=== PATIENT | female | born 1950 | race Caucasian/White ===

== ENCOUNTER 2018-09-28 08:41 | Day surgery (SDC) | payer OTHER ==
[2018-09-28] VITALS (14 sets, daily range): BP systolic 116–136; BP diastolic 58–85; PULSE 60–83; RESP 11–25; Ht 157.5 cm; Wt 70.7 kg
[~2018-09-28] VITALS: Ht 157.5 cm; Wt 70.7 kg
[~2018-09-28 08:41] MED LIST: CEFAZOLIN 1 GM INJ ONE; CEFAZOLIN 2 GM/50 ML (PMX) 50 ML IVPB ONE; DESFLURANE 15 MIN ONE; LIDOCAINE 2% (SDV) 5 ML INJ ONE; SOD CHLORIDE 0.9% 1,000 ML IV SCH
[2018-09-28] MEDS ORDERED: LEVO75TA65 PO (10:01)
[2018-09-28] MEDS ORDERED: ATOR20TA38 PO (10:02)
[2018-09-28] MEDS ORDERED: ALEN70TA5 PO (10:03)
[2018-09-28] MEDS ORDERED: LIDOCAINE 1% (MPF) 30 ML INJ ONE (12:45)
--- NOTE | 2018-09-28 12:46 | PREAC ---
Date/Time of Note Date/Time of Note DATE: 09/28/18 TIME: 12:44 Anesthesia Eval and Record Evaluation Time Pre-Procedure Interview DATE: 09/28/18 TIME: 12:44 Age 67 Sex female NPO: 8 hrs Preoperative diagnosis L breast mass Planned procedure L breast needle loc biopsy Past Medical History Past Medical History: Includes Cardio: Dyslipidemia Endo: Hypothyroid Musculoskeletal: Osteoarthritis Surgery & Anesthesia Issues No known issue Meds Anticoagulation: No Beta Kana within 24 hr: No Reason Beta Kana not given: Pt. not on B-Kana Reported Medications Alendronate Sodium* (Fosamax*) 70 Mg Tablet, 70 MG PO EVERY FRIDAY, #4 TAB 09/28/18 Atorvastatin Calcium* (Atorvastatin Calcium*) 20 Mg Tablet, 20 MG PO QHS, #30 TAB 09/28/18 Levothyroxine Sodium* (Levoxyl*) 75 Mcg Tablet, 75 MCG PO BEFORE BREAKFAST, #30 TAB 09/28/18 Current Medications Sodium Chloride 1,000 ml @ 75 mls/hr [id number] IV ; Start 09/28/18 at 07:00; St op 09/28/18 at 20:19 Meds reviewed: Yes Allergies Coded Allergies: No Known Drug Allergies (Unverified Allergy, Unknown, 09/28/18) Allergies Reviewed: Yes Labs/Studies Labs Reviewed: Reviewed by anesthesiologist test: Negative Studies: ECG Pre-procedure Exam Last vitals Vital Signs Date Temp Pulse Resp B/P (MAP) Pulse Ox O2 O2 Flow FiO2 Time Delivery Rate 09/28/18 97.3 83 18 125/85 99 Room Air 10:28 (98) Airway: Adequate mouth opening, Adequate thyromental dist Mallampati: Mallampati II Teeth: Normal Lung: Normal Heart: Normal ASA Physical Status ASA physical status: 3 Emergency: None Planned Anesthetic General/MAC: ETT Pre-operative Attestations Prior to commencing anesthesia and surgery, the patient was re-evaluated, there was verification of: *The patient's identity *The results of appropriate recent lab work and preoperative vital signs *The above evaluation not changing prior to induction *Anesthetic plan, risk benefits, alternative and complications discussed with patient/family; questions answered; patient/family understands, accepts and wishes to proceed. LUIS ALFREDO JEFFERS Sep 28, 2018 12:46
--- NOTE | 2018-09-28 12:49 | HPN ---
Date/Time of Note Date/Time of Note DATE: 09/28/18 TIME: 12:49 Interval H&P Admission Note Pt. seen H&P reviewed: No system changes GERALDO WILSON MD Sep 28, 2018 12:49
[2018-09-28] MEDS ORDERED: FENTAnyl 50 MCG/ML VIAL ONE (12:56)
[2018-09-28] MEDS ORDERED: HYDROmorphONE 1 MG/5 ML IV SYRINGE IV PRN ×3 (13:00)
[2018-09-28] MEDS ORDERED: METOCLOPRAMIDE 10 MG INJ IV PRN (13:00)
[2018-09-28] MEDS ORDERED: MEPERIDINE 25 MG INJ IV PRN (13:00)
[2018-09-28] MEDS ORDERED: ALBUTEROL 0.083% (NEB) 2.5 MG/3 ML AMP HHN PRN (13:00)
[2018-09-28] MEDS ORDERED: DIPHENHYDRAMINE 50 MG INJ IV PRN (13:00)
[2018-09-28] MEDS ORDERED: ONDANSETRON 4 MG INJ IV PRN ×2 (13:00→14:30)
[2018-09-28] MEDS ORDERED: FENTAnyl 50 MCG/ML VIAL IV PRN ×2 (13:00)
[2018-09-28] MEDS ORDERED: BUPIVACAINE 0.5% (SDV) 30 ML INJ ONE (13:24)
[2018-09-28] MEDS ORDERED: PROPOFOL 20 ML ONE (14:09)
[2018-09-28] MEDS ORDERED: ROCURONIUM 50 MG INJ ONE (14:09)
[2018-09-28] MEDS ORDERED: SUCCINYLCHOLINE CHLORIDE 100 MG/5 ML SYG IV ONE (14:09)
[2018-09-28] MEDS ORDERED: GLYCOPYRROLATE 0.4 MG INJ ONE (14:09)
[2018-09-28] MEDS ORDERED: NEOSTIGMINE 3 MG/3 ML SYRINGE ONE (14:09)
--- NOTE | 2018-09-28 14:22 | OPR ---
Date/Time of Note Date/Time of Note DATE: 09/28/18 TIME: 14:16 Operative Report Procedure Date: Sep 28, 2018 Preoperative Diagnosis Left breast mass Postoperative Diagnosis Left breast mass Operation/Procedure Performed Partial mastectomy, excisional biopsy of left breast mass using wire needle localization Surgeon see signature line Applications Consultant None Anesthesia Type: general Anesthesiologist: LUIS ALFREDO JEFFERS Estimated Blood Loss: minimal Transfusion none Specimen Left breast mass Grafts/Implants none Complications none Pt Condition Post Procedure: stable Disposition: PACU Indications Patient is a 67-year-old [place] female who presented to the office after she was found to have a suspicious left breast mass on routine mammography. The patient had an ultrasound and Mammogram which showed suspicious lesion in the region 12:00 of the left breast in mid depth. Given the above findings the patient was initially offered stereotactic biopsy, however, she refused this and requested surgical excision instead. She was scheduled for elective left partial mastectomy with wire needle localization for complete excision and definitive pathological diagnosis. All risks and benefits of the procedure including, but not limited to: Wound infection, excessive bleeding, postoperative seroma/hematoma formation, possible need for subsequent surgeries, loss of nipple areolar sensation, etc. were explained to the patient in full detail. She fully understood and wished to proceed with the procedure. Informed consent was obtained. Procedure Description The patient was brought to the operating room and placed supine on the operating table. Bilateral sequential compression devices were placed on both lower extremities. A dose of broad-spectrum perioperative intravenous antibiotics was given. Patient had undergone preoperative wire needle localization. After the induction of smooth general anesthesia the patient's left breast and chest wall were prepped and draped in standard surgical fashion. After performance of the surgical timeout 0.5% Marcaine was injected around the area of the incision. An incision was then made using a 15 blade scalpel from approximately the 11:00 location to the 12:00 location of the left breast, 6-8 cm from the nipple. Incision was carried down through the skin and subcutaneous tissues to the level of breast tissue using sharp dissection and Bovie electrocautery. Flaps were then raised circumferentially. The wire needle was identified. Its external portion was cut. The wire was then delivered through the skin into the field. Circumferential core of tissue was then dissected around the wire down to the level of the deep posterior breast. The specimen was then transected at its base. Marking sutures were used to tito the superior and lateral aspects. Specimen was then passed off the field. Intraoperative mammography showed the specimen to contain the wire needle and the mass in its entirety. At this point hemostasis was inspected for and noted to be total. The wound cavity was irrigated and the irrigant returned clear. The wound was then closed in layers using interrupted 3-0 Vicryl sutures for the deep breast tissue and dermis. The skin was then reapproximated using a running 4-0 Monocryl suture in subcuticular fashion. Incision was cleaned and Dermabond was applied as well as sports bra. The patient was then awoken from anesthesia and transferred to the recovery room in stable condition. All counts were correct at the end of the case 2. GERALDO WILSON MD Sep 28, 2018 14:22
[2018-09-28] MEDS ORDERED: KETOROLAC 30 MG INJ IV PRN (14:30)
[2018-09-28] MEDS ORDERED: IBUPROFEN 600 MG TAB PO PRN (14:30)
--- NOTE | 2018-09-28 18:02 | PAC ---
Date/Time of Note Date/Time of Note DATE: 09/28/18 TIME: 18:02 Post-Anesthesia Notes Post-Anesthesia Note Last documented vital signs Vital Signs Date Temp Pulse Resp B/P (MAP) Pulse Ox O2 O2 Flow FiO2 Time Delivery Rate 09/28/18 97.6 60 17 129/65 97 Room Air 15:25 (86) Activity: WNL Respiratory function: WNL Cardiovascular function: WNL Mental status: Baseline Pain reasonably controlled: Yes Hydration appropriate: Yes Nausea/Vomiting absent: Yes LUIS ALFREDO JEFFERS Sep 28, 2018 18:02
== END 2018-09-28 16:11 | disposition home or self-care (01) ==
LOC: SDS 08:41
PROVIDERS: ATTEND Surgery
DX: D05.12 Intraductal carcinoma in situ of left breast (principal)
CPT/HCPCS: 19120; 88307; J0690; J1885; J2405; J3010; Z7610; J2710

== ENCOUNTER 2019-01-04 11:37 | Day surgery (SDC) | payer OTHER ==
[2019-01-01 17:47] VITALS: Ht 165.1 cm; Wt 100.0 kg
[2019-01-04] VITALS (19 sets, daily range): BP systolic 103–158; BP diastolic 58–84; PULSE 50–61; RESP 17–18
[~2019-01-04] VITALS: Ht 165.1 cm; Wt 100.0 kg
[~2019-01-04 11:37] MED LIST changes: +ALEN70TA5 PO; +ATOR20TA38 PO; -CEFAZOLIN 1 GM INJ ONE; -CEFAZOLIN 2 GM/50 ML (PMX) 50 ML IVPB ONE; +CEFAZOLIN 2 GM/50 ML (PMX) 50 ML IVPB SCH; -DESFLURANE 15 MIN ONE; +LEVO75TA65 PO; -LIDOCAINE 2% (SDV) 5 ML INJ ONE
[2019-01-04] MEDS ORDERED: ALEN70TA5 PO (12:02)
[2019-01-04] MEDS ORDERED: ISOSULFAN BLUE 1% 5 ML INJ SC ONE (13:04)
--- NOTE | 2019-01-04 13:38 | PREAC ---
Date/Time of Note Date/Time of Note DATE: 01/04/19 TIME: 13:37 Anesthesia Eval and Record Evaluation Time Pre-Procedure Interview DATE: 01/04/19 TIME: 13:37 Age 68 Sex female NPO: 8 hrs Preoperative diagnosis left breast mass Planned procedure left axillary lymph node dissection, sentinel node biopsy Past Medical History Past Medical History: Includes Cardio: Dyslipidemia Endo: Hypothyroid GI: Obesity Surgery & Anesthesia Issues No known issue Meds Anticoagulation: No Beta Kana within 24 hr: No Reason Beta Kana not given: Pt. not on B-Kana Reported Medications Alendronate Sodium* (Fosamax*) 70 Mg Tablet, 70 MG PO EVERY FRIDAY, #4 TAB 01/04/19 Atorvastatin Calcium* (Atorvastatin Calcium*) 20 Mg Tablet, 20 MG PO QHS, #30 TAB 09/28/18 Levothyroxine Sodium* (Levoxyl*) 75 Mcg Tablet, 75 MCG PO BEFORE BREAKFAST, #30 TAB 09/28/18 Discontinued Reported Medications Alendronate Sodium* (Fosamax*) 70 Mg Tablet, 70 MG PO EVERY FRIDAY, #4 TAB 09/28/18 Current Medications Sodium Chloride 1,000 ml @ 75 mls/hr [id number] IV ; Start 01/04/19 at 06:00; Stop 01/04/19 at 23:00 Meds reviewed: Yes Allergies Coded Allergies: No Known Drug Allergies (Unverified Allergy, Unknown, 01/04/19) Allergies Reviewed: Yes Labs/Studies Labs Reviewed: Reviewed by anesthesiologist test: N/A Pre-procedure Exam Last vitals Vital Signs Date Temp Pulse Resp B/P (MAP) Pulse Ox O2 O2 Flow FiO2 Time Delivery Rate 01/04/19 97.8 61 18 156/84 97 Room Air 13:18 (108) Airway: Adequate mouth opening, Adequate thyromental dist Mallampati: Mallampati II Teeth: Normal Lung: Normal Heart: Normal ASA Physical Status ASA physical status: 2 Emergency: None Planned Anesthetic General/MAC: LMA Planned Pain Management Parenteral pain med Pre-operative Attestations Prior to commencing anesthesia and surgery, the patient was re-evaluated, there was verification of: *The patient's identity *The results of appropriate recent lab work and preoperative vital signs *The above evaluation not changing prior to induction *Anesthetic plan, risk benefits, alternative and complications discussed with patient/family; questions answered; patient/family understands, accepts and wishes to proceed. DINAH LESLIE Jan 04, 2019 13:38
[2019-01-04] MEDS ORDERED: PROPOFOL 100 ML ONE (13:42)
[2019-01-04] MEDS ORDERED: FENTAnyl 50 MCG/ML VIAL ONE ×2 (13:42→16:12)
[2019-01-04] MEDS ORDERED: LIDOCAINE 2% (SDV) 5 ML INJ ONE (13:44)
--- NOTE | 2019-01-04 13:44 | HPN ---
Date/Time of Note Date/Time of Note DATE: 01/04/19 TIME: 13:44 Interval H&P Admission Note Pt. seen H&P reviewed: No system changes GERALDO WILSON MD Jan 04, 2019 13:44
[2019-01-04] MEDS ORDERED: CEFAZOLIN 1 GM INJ ONE (13:58)
[2019-01-04] MEDS ORDERED: BUPIVACAINE 0.5% (SDV) 30 ML INJ ONE (14:23)
[2019-01-04] MEDS ORDERED: BUPIVACAINE 0.25%/EPI (SDV) 30 ML INJ ONE (14:24)
[2019-01-04] MEDS ORDERED: DEXAMETHASONE 4 MG/ML 5 ML INJ ONE (15:16)
[2019-01-04] MEDS ORDERED: ONDANSETRON 4 MG INJ ONE (15:16)
--- NOTE | 2019-01-04 15:28 | OPR ---
Date/Time of Note Date/Time of Note DATE: 01/04/19 TIME: 15:20 Operative Report Procedure Date: Jan 04, 2019 Preoperative Diagnosis Invasive ductal carcinoma left breast Postoperative Diagnosis Invasive ductal carcinoma left breast Operation/Procedure Performed 1. Left sentinel lymph node biopsy 2. 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 She underwent excisional biopsy of an irregular left breast mass, the final pathology of which showed invasive ductal carcinoma of the left breast. The patient was scheduled for left sentinel lymph node biopsy and possible left axillary lymph node dissection, if needed. All risks and benefits of the procedure including, but not limited to: Wound infection, excessive bleeding, postoperative seroma/hematoma formation, neurovascular injury with resulting deficits including the thoracodorsal, intercostobrachial, and long thoracic nerves, possible need for subsequent surgery and completion axillary lymph node dissection, etc. were all explained to the patient and her daughter in detail. Patient fully understood and wished to proceed with the procedure. Informed consent and medical clearance were obtained. Procedure Description Patient was brought to the operating room and placed supine on the operating table. Bilateral sequential compression devices were placed on both lower extremities. A dose of broad-spectrum perioperative intravenous antibiotics was given. After the induction of smooth general anesthesia 5 cc of Lymphazurin blue dye was injected periareolar in the dermis. 5-minute massage was performed. Axillary roll was placed for exposure. The left breast, axilla, and left upper extremity were prepped and draped in standard surgical fashion. After performance of the surgical timeout, a transverse incision was made just inferior to the hairbearing area of the left axilla using a 15 blade scalpel. Incision was carried down through the skin and subcutaneous tissues to the level of the clavipectoral fascia which was incised. Axillary fat pad was identified and entered. Dissection was then continued using combination of blunt dissection and hand-held LigaSure device. The thoracodorsal nerve was identified, confirmed, and preserved during the entirety of the procedure. In the deep axilla and approximately 1 cm lymph node was identified there were 2 smaller lymph nodes just adjacent to this. They were not stained with blue dye. Dissection was done in the nodes transected and passed off the field specimen. Dissection was then continued anterior medially. Blue dyed lymphatics were identified and followed to an approximately 1 cm blue dye stained lymph node. This was dissected free of surrounding tissues, transected and passed off the field as specimen. Intraoperative pathology consultation with touch imprints on all lymph nodes were negative for malignant cells. The wound cavity was then irrigated with sterile water and the irrigant returned clear. Hemostasis was inspected for noted to be adequate. 0.25% Marcaine was then injected around the area of the incision and into the deep tissues. Incision was then closed in layers using interrupted 3-0 Vicryl sutures for the dermal layer. The skin was reapproximated using 4-0 Monocryl sutures in a running subcuticular fashion. Incision was cleaned and Dermabond was applied. The patient was awoken from anesthesia and transferred to recovery room in stable condition. All counts were correct at the end the case x2 GERALDO WILSON MD Jan 04, 2019 15:28
[2019-01-04] MEDS ORDERED: IBUPROFEN 600 MG TAB PO PRN (15:30)
[2019-01-04] MEDS ORDERED: KETOROLAC 30 MG INJ IV PRN ×2 (15:30→16:00)
[2019-01-04] MEDS ORDERED: ONDANSETRON 4 MG INJ IV PRN ×2 (15:30→16:00)
[2019-01-04] MEDS ORDERED: HYDROCODONE/APAP (5/325) TAB PO PRN ×2 (15:30)
--- NOTE | 2019-01-04 15:33 | PAC ---
Date/Time of Note Date/Time of Note DATE: 01/04/19 TIME: 15:33 Post-Anesthesia Notes Post-Anesthesia Note Last documented vital signs Vital Signs Date Temp Pulse Resp B/P (MAP) Pulse Ox O2 O2 Flow FiO2 Time Delivery Rate 01/04/19 97.8 61 18 156/84 97 Room Air 1533 (108) Activity: WNL Respiratory function: WNL Cardiovascular function: WNL Mental status: Baseline Pain reasonably controlled: Yes Hydration appropriate: Yes Nausea/Vomiting absent: Yes DINAH LESLIE Jan 04, 2019 15:33
[2019-01-04] MEDS ORDERED: FENTAnyl 50 MCG/ML VIAL IV PRN ×3 (16:00)
[2019-01-04] MEDS ORDERED: ALBUTEROL 0.083% (NEB) 2.5 MG/3 ML AMP HHN PRN (16:00)
[2019-01-04] MEDS ORDERED: hydrALAzine 20 MG INJ IV PRN (16:00)
[2019-01-04] MEDS ORDERED: DIPHENHYDRAMINE 50 MG INJ IV PRN (16:00)
[2019-01-04] MEDS ORDERED: LABETALOL HCL 20MG INJ IV PRN (16:00)
[2019-01-04] MEDS ORDERED: MEPERIDINE 25 MG INJ IV PRN (16:00)
[2019-01-04] MEDS ORDERED: METOCLOPRAMIDE 10 MG INJ IV PRN (16:00)
[2019-01-04] MEDS ORDERED: EPHEDrine SULFATE 50 MG/5 ML SYG IV PRN (16:00)
[2019-01-04] MEDS ORDERED: OXYCODONE/ACETAMINOPHEN (5/325) TAB PO PRN ×2 (16:00)
== END 2019-01-04 17:48 | disposition home or self-care (01) ==
LOC: SDS 11:37
PROVIDERS: ATTEND Surgery
DX: C50.912 Malignant neoplasm of unspecified site of left female breast (principal); E03.9 Hypothyroidism, unspecified
CPT/HCPCS: 38500; 38792; J0690; J1100; J1885; J2405; J3010; Z7512; Z7610; 88307; 88331; Q9968